=== PATIENT | male | born 1970 | race Two or more races ===

== ENCOUNTER 2017-10-13 20:56 | Emergency (ER) | payer MEDICAID ==
[~2017-10-13] VITALS: Ht 167.6 cm; Wt 68.0 kg
[~2017-10-13 20:56] MED LIST: AZIT250T PO; CYCL-1 PO; DIAZ-351 PO; HYDR-569 PO; IBUP-1985 PO; MECL-111 PO; NAPR-1144 PO; ONDA4TAB12 PO; PROC-8 PO
[2017-10-13] MEDS ORDERED: IBUP-1985 PO (21:35)
[2017-10-13] MEDS ORDERED: ibuprofen 200mg tablet PO ONE (21:35)
[2017-10-13 21:52] VITALS: BP 158/99
== END 2017-10-13 21:52 | disposition home or self-care (01) ==
LOC: ER 20:58
DX: S60.211A Contusion of right wrist, initial encounter (principal); J45.909 Unspecified asthma, uncomplicated; F15.10 Other stimulant abuse, uncomplicated; F12.10 Cannabis abuse, uncomplicated; Z88.0 Allergy status to penicillin; W22.8XXA Striking against or struck by other objects, initial encounter; Y93.89 Activity, other specified; Y92.89 Other specified places as the place of occurrence of the external cause; Y99.8 Other external cause status
CPT/HCPCS: 73130; 99284

== ENCOUNTER 2017-12-01 11:21 | Emergency (ER) | payer MEDICAID ==
[~2017-12-01] VITALS: Ht 167.6 cm; Wt 63.0 kg
[2017-12-01 11:33] VITALS: BP 140/100
[2017-12-01] MEDS ORDERED: DOXY100C43 PO (12:03)
== END 2017-12-01 12:26 | disposition home or self-care (01) ==
LOC: ER 11:21
DX: L02.415 Cutaneous abscess of right lower limb (principal); J45.909 Unspecified asthma, uncomplicated; F12.10 Cannabis abuse, uncomplicated; F15.10 Other stimulant abuse, uncomplicated; Z90.49 Acquired absence of other specified parts of digestive tract; Z98.890 Other specified postprocedural states; Z56.0 Unemployment, unspecified; Z88.0 Allergy status to penicillin; Z79.899 Other long term (current) drug therapy
CPT/HCPCS: 99283

== ENCOUNTER 2019-01-18 10:31 | Emergency (ER) | payer MEDICAID ==
[~2019-01-18] VITALS: Ht 165.1 cm; Wt 63.6 kg
[~2019-01-18 10:31] MED LIST changes: +HYDR-4383 PO; -HYDR-569 PO
[2019-01-18 10:38] VITALS: BP 121/80
== END 2019-01-18 11:24 | disposition home or self-care (01) ==
LOC: ER 10:31
DX: F15.90 Other stimulant use, unspecified, uncomplicated (principal); F11.90 Opioid use, unspecified, uncomplicated; Z02.89 Encounter for other administrative examinations; J45.909 Unspecified asthma, uncomplicated; F12.90 Cannabis use, unspecified, uncomplicated; F17.200 Nicotine dependence, unspecified, uncomplicated; Z90.49 Acquired absence of other specified parts of digestive tract; Z98.890 Other specified postprocedural states; Z88.0 Allergy status to penicillin; Z79.899 Other long term (current) drug therapy; Z56.0 Unemployment, unspecified; Z60.2 Problems related to living alone
CPT/HCPCS: 99281

== ENCOUNTER → 2020-05-24 | Emergency (ER) | payer MEDICAID ==
[~2020-05-24] VITALS: Ht 165.1 cm; Wt 56.0 kg
[~2020-05-24] MED LIST changes: +CefTRIAXone 2gm/D5W 50ml 50 ML IV ONE; +ESOM40CA49 PO; +HYDROmorphone 1 mg/ml syringe IV ONE; -MECL-111 PO; +MECL-159 PO; +TETRAcaine 0.5% ophthalmic drops 15ml EACHEYE ONE; +morphine 10mg/ml inj. IV ONE; +proparacaine 0.5% ophthalmic drops 15ml EACHEYE ONE
--- NOTE | 2020-05-24 18:03 | NUR ---
awaiting ed MD.
[2020-05-24 19:16] LABS: BASOPHILS # (AUTO) 0.1 X10'3 (0-0.2); BASOPHILS % (AUTO) 0.9 % (0-1); EOSINOPHILS # (AUTO) 0.1 X10'3 (0-0.9); EOSINOPHILS % (AUTO) 1.4 % (0-6); HEMATOCRIT 40.5 % (42.0-52.0); HEMOGLOBIN 13.7 g/dl (14.0-17.9); LYMPHOCYTES # (AUTO) 1.5 X10'3 (1.1-4.8); LYMPHOCYTES % (AUTO) 22.7 % (21-51); MEAN CORPUSCULAR HEMOGLOBIN 29.7 PG (27.0-31.0); MEAN CORPUSCULAR HGB CONC 33.7 g/dL (33.0-36.5); MEAN CORPUSCULAR VOLUME 88.2 FL (78-98); MONOCYTES # (AUTO) 0.5 X10'3 (0-0.9); MONOCYTES % (AUTO) 6.8 % (2-12); NEUTROPHILS # (AUTO) 4.6 X10'3 (1.8-7.7); NEUTROPHILS % (AUTO) 68.2 % (42-75); PLATELET COUNT 471 X10'3 (140-440); RED CELL DISTRIBUTION WIDTH 13.7 % (11.5-14.5); WHITE BLOOD COUNT 6.8 X10'3 (4.5-11.0)
[2020-05-24 19:25] LABS: ALANINE AMINOTRANSFERASE 69 U/L (12-78); ALBUMIN 3.4 G/DL (3.4-5.0); ALBUMIN/GLOBULIN RATIO 0.7 (1.1-1.5); ALKALINE PHOSPHATASE 111 IU/L (46-116); ANION GAP 8 (8-16); ASPARTATE AMINO TRANSFERASE 60 U/L (10-37); BILIRUBIN,TOTAL 0.2 MG/DL (0.1-1.0); BLOOD UREA NITROGEN 20 MG/DL (7-18); BUN/CREATININE RATIO 18.9 (5.4-32.0); CALCIUM 9.4 MG/DL (8.5-10.1); CHLORIDE 103 MMOL/L (99-107); CREATININE 1.06 MG/DL (0.60-1.10); GLUCOSE 90 MG/DL (70-104); POTASSIUM 4.1 MMOL/L (3.5-5.1); SODIUM 140 MMOL/L (135-145); TOTAL CARBON DIOXIDE 29.1 MMOL/L (24-32); TOTAL PROTEIN 8.4 G/DL (6.4-8.2); eGFR 74 ML/MIN
[2020-05-24 21:31] VITALS: BP 150/106
--- NOTE | 2020-05-24 23:50 | NUR ---
Report given to ZEESHAN Sigala at [facility] ER
== END | disposition short-term general hospital (02) ==
LOC: ER 17:27
DX: H20.051 Hypopyon, right eye (principal); J45.909 Unspecified asthma, uncomplicated; F41.9 Anxiety disorder, unspecified; F31.9 Bipolar disorder, unspecified; F12.90 Cannabis use, unspecified, uncomplicated; F15.90 Other stimulant use, unspecified, uncomplicated; F11.90 Opioid use, unspecified, uncomplicated; Z90.49 Acquired absence of other specified parts of digestive tract; Z98.890 Other specified postprocedural states; Z60.2 Problems related to living alone; Z56.0 Unemployment, unspecified; Z88.0 Allergy status to penicillin; Z79.2 Long term (current) use of antibiotics; Z79.899 Other long term (current) drug therapy
CPT/HCPCS: 36415; 80053; 84145; 85025; 96365; 96375; 99285; J0696; J1170; J2270

== ENCOUNTER 2021-04-18 20:38 | Emergency (ER) | payer MEDICAID ==
[~2021-04-18] VITALS: Ht 167.6 cm; Wt 62.8 kg
[~2021-04-18 20:38] MED LIST changes: -CefTRIAXone 2gm/D5W 50ml 50 ML IV ONE; -HYDROmorphone 1 mg/ml syringe IV ONE; -TETRAcaine 0.5% ophthalmic drops 15ml EACHEYE ONE; -morphine 10mg/ml inj. IV ONE; -proparacaine 0.5% ophthalmic drops 15ml EACHEYE ONE
[2021-04-18 20:43] VITALS: BP 124/80
[2021-04-18 21:27] LABS: CLARITY,URINE CLEAR (Clear); COLOR,URINE YELLOW (Yellow); GLUCOSE, URINE NEGATIVE (Neg); KETONES,URINE NEGATIVE (Neg); LEUKOCYTE ESTERASE ,URINE NEGATIVE (Neg); NITRITES, URINE NEGATIVE (Neg); OCCULT BLOOD,URINE NEGATIVE (Neg); PROTEIN,URINE NEGATIVE (Neg); UROBILINOGEN,URINE 0.2 E.U/dL (0.2-1.0)
[2021-04-18 21:32] LABS: UA COLLECTION TYPE CLN CATCH MIDSTREAM
[2021-04-18] MEDS ORDERED: normal saline 1000ml 1,000 ML IV ONE (22:40)
[2021-04-18] MEDS ORDERED: morphine 4 MG/ML inj SYRINge IV ONE (22:40)
[2021-04-18] MEDS ORDERED: ondansetron/PF 4mg/2ml inj IV ONE (23:05)
[2021-04-18 23:09] LABS: BASOPHILS % (AUTO) 0.4 % (0-1); EOSINOPHILS # (AUTO) 0.2 X10'3 (0-0.9); EOSINOPHILS % (AUTO) 1.7 % (0-6); HEMATOCRIT 32.7 % (42.0-52.0); HEMOGLOBIN 10.4 g/dl (14.0-17.9); LYMPHOCYTES # (AUTO) 1.9 X10'3 (1.1-4.8); MEAN CORPUSCULAR HEMOGLOBIN 26.1 PG (27.0-31.0); MEAN CORPUSCULAR VOLUME 81.6 FL (78-98); MONOCYTES # (AUTO) 0.9 X10'3 (0-0.9); MONOCYTES % (AUTO) 8.5 % (2-12); NEUTROPHILS # (AUTO) 7.1 X10'3 (1.8-7.7); NEUTROPHILS % (AUTO) 70.4 % (42-75); PLATELET COUNT 469 X10'3 (140-440); RED CELL DISTRIBUTION WIDTH 16.1 % (11.5-14.5); WHITE BLOOD COUNT 10.1 X10'3 (4.5-11.0)
[2021-04-18 23:24] LABS: ALBUMIN 3.2 G/DL (3.4-5.0); ALBUMIN/GLOBULIN RATIO 0.8 (1.1-1.5); ANION GAP 8 (8-16); ASPARTATE AMINO TRANSFERASE 18 U/L (10-37); BILIRUBIN,TOTAL 0.1 MG/DL (0.1-1.0); BLOOD UREA NITROGEN 17 MG/DL (7-18); BUN/CREATININE RATIO 16.2 (5.4-32.0); CALCIUM 8.4 MG/DL (8.5-10.1); CHLORIDE 109 MMOL/L (99-107); CREATININE 1.05 MG/DL (0.60-1.10); GLUCOSE 100 MG/DL (70-104); POTASSIUM 4.1 MMOL/L (3.5-5.1); SODIUM 144 MMOL/L (135-145); TOTAL CARBON DIOXIDE 27.4 MMOL/L (24-32); eGFR 74 ML/MIN
[2021-04-18 23:25] LABS: ALANINE AMINOTRANSFERASE 33 U/L (12-78); ALKALINE PHOSPHATASE 120 IU/L (46-116)
--- NOTE | 2021-04-19 01:06 | NUR ---
PT WAS SLEEPING WITH SNORING RESPIRATIONS - THE TECH AWOKE THE PATIENT TO LET HIM KNOW THAT THE RN WOULD BE IN SOON TO D\C HIM AND ASKED IF HE HAD A RIDE. THE PT BECAME LOUD AND DEMANDING STATING THAT WE COULDN'T DISCHARGE HIM BECAUSE HE WAS IN TOO MUCH PAIN. ATTEMPTS WERE MADE TO EDUCATE PT ON HIS D\C BUT HE WAS ADAMANT THAT WE NOT DISCHARGE HIM. SECURITY WAS CALLED AND PT WAS ESCORTED OFF PROPERTY.
== END 2021-04-19 01:30 | disposition home or self-care (01) ==
LOC: ER 20:38
DX: R10.84 Generalized abdominal pain (principal); J45.909 Unspecified asthma, uncomplicated; F41.9 Anxiety disorder, unspecified; F31.9 Bipolar disorder, unspecified; F12.90 Cannabis use, unspecified, uncomplicated; F15.90 Other stimulant use, unspecified, uncomplicated; F11.90 Opioid use, unspecified, uncomplicated; Z90.49 Acquired absence of other specified parts of digestive tract; Z98.890 Other specified postprocedural states; Z72.89 Other problems related to lifestyle; Z60.2 Problems related to living alone; Z56.0 Unemployment, unspecified; Z88.0 Allergy status to penicillin; Z79.2 Long term (current) use of antibiotics; Z79.899 Other long term (current) drug therapy
CPT/HCPCS: 36415; 74176; 80053; 81003; 85025; 96374; 96375; 99284; J2270; J2405; J7030

== ENCOUNTER 2022-09-11 | Inpatient (IN) | payer MEDICAID ==
[~2022-09-11] VITALS: Ht 165.1 cm; Wt 68.2 kg
[2022-09-11] MEDS ORDERED: clindamycin 600mg/D5W 50ml 50 ML IV ONE (01:25)
[2022-09-11] MEDS ORDERED: LIDOCAINE 2%/EPI 1:100,000 inj. Multi-dose 20 ML VIAL IJ ONE (01:25)
[2022-09-11] MEDS ORDERED: acetaminophen 325mg tablet PO ONE (01:30)
[2022-09-11] MEDS ORDERED: ondansetron/PF 4mg/2ml inj IV PRN (02:20)
[2022-09-11] MEDS ORDERED: morphine 2 MG/ML inj. syringe IV PRN ×2 (02:20)
[2022-09-11] MEDS ORDERED: HYDROcodone/acetaminophen 10/325mg tab PO PRN (02:20)
[2022-09-11] MEDS ORDERED: mag hydrox/Alum hydrox/simeth 30ml oral suspension PO PRN (02:20)
[2022-09-11] MEDS ORDERED: acetaminophen 325mg tablet PO PRN ×2 (02:20)
[2022-09-11] MEDS ORDERED: magnesium hydroxide 30ml (MOM) UD suspension PO PRN (02:20)
[2022-09-11] MEDS ORDERED: HYDROcodone/acetaminophen 5mg/325mg tablet PO PRN (02:20)
[2022-09-11 02:35] LABS: BASOPHILS # (AUTO) 0.1 X10'3 (0-0.2); BASOPHILS % (AUTO) 0.5 % (0-1); EOSINOPHILS # (AUTO) 0.2 X10'3 (0-0.9); EOSINOPHILS % (AUTO) 1.3 % (0-6); HEMATOCRIT 35.1 % (42.0-52.0); HEMOGLOBIN 11.2 g/dl (14.0-17.9); LYMPHOCYTES # (AUTO) 1.9 X10'3 (1.1-4.8); LYMPHOCYTES % (AUTO) 16.3 % (21-51); MEAN CORPUSCULAR HGB CONC 31.8 g/dL (33.0-36.5); MEAN CORPUSCULAR VOLUME 78.7 FL (78-98); MEAN PLATELET VOLUME 7.2 FL (7.4-10.4); MONOCYTES # (AUTO) 0.8 X10'3 (0-0.9); MONOCYTES % (AUTO) 7.2 % (2-12); NEUTROPHILS # (AUTO) 8.6 X10'3 (1.8-7.7); NEUTROPHILS % (AUTO) 74.7 % (42-75); PLATELET COUNT 462 X10'3 (140-440); RED BLOOD COUNT 4.46 X10'6 (4.70-6.10); RED CELL DISTRIBUTION WIDTH 18.1 % (11.5-14.5); WHITE BLOOD COUNT 11.5 X10'3 (4.5-11.0)
[2022-09-11 02:47] LABS: ALANINE AMINOTRANSFERASE 32 U/L (12-78); ALBUMIN 3.3 G/DL (3.4-5.0); ALBUMIN/GLOBULIN RATIO 0.8 (1.1-1.5); ALKALINE PHOSPHATASE 109 IU/L (46-116); ANION GAP 8 (8-16); ASPARTATE AMINO TRANSFERASE 26 U/L (10-37); BILIRUBIN,TOTAL 0.1 MG/DL (0.1-1.0); BLOOD UREA NITROGEN 14 MG/DL (7-18); BUN/CREATININE RATIO 17.5 (5.4-32.0); CALCIUM 8.9 MG/DL (8.5-10.1); CHLORIDE 102 MMOL/L (99-107); GLUCOSE 98 MG/DL (70-104); POTASSIUM 3.8 MMOL/L (3.5-5.1); SODIUM 138 MMOL/L (135-145); TOTAL CARBON DIOXIDE 27.7 MMOL/L (24-32); TOTAL PROTEIN 7.6 G/DL (6.4-8.2); eGFR > 90 ML/MIN
[2022-09-11] MEDS: vancomycin/NS 1 GM ADD-VANTAGE 250 ML IV SCH ×4 (03:18→22:15)
--- NOTE | 2022-09-11 06:34 | NUR ---
Patient asleep.Respirations regular,awaiting for in patient room assignment.
[2022-09-11] MEDS ORDERED: FERR-116 PO (06:59)
[2022-09-11] MEDS ORDERED: LISI5TAB22 PO (06:59)
[2022-09-11] MEDS: docusate sod 100mg capsule PO SCH ×2 (08:32→20:53)
[2022-09-11] MEDS: enoxaparin 40mg/0.4ml syringe SUBCUT SCH ×2 (08:33→20:45)
[2022-09-11 08:56] VITALS: BP 133/84
[2022-09-11 11:30] VITALS: BP 132/83
[2022-09-11 18:00] VITALS: BP 133/85
--- NOTE | 2022-09-11 20:58 | NUR ---
vanco admin deferred. IV occluded
[2022-09-11 22:00] VITALS: BP 131/86
--- NOTE | 2022-09-12 06:32 | NUR ---
Patient in room [facility]. I have received report from SHEY BYERS and had the opportunity to ask questions and assume patient care.
[2022-09-12 06:56] VITALS: BP 136/95
[2022-09-12] MEDS ORDERED: VANCOMYCIN LEVEL IV ONE (07:30)
[2022-09-12] MEDS: vancomycin/NS 1 GM ADD-VANTAGE 250 ML IV SCH (07:45)
[2022-09-12] MEDS: docusate sod 100mg capsule PO SCH (07:45)
[2022-09-12] MEDS: enoxaparin 40mg/0.4ml syringe SUBCUT SCH (07:46)
[2022-09-12 07:55] LABS: BASOPHILS % (AUTO) 0.6 % (0-1); EOSINOPHILS # (AUTO) 0.2 X10'3 (0-0.9); EOSINOPHILS % (AUTO) 3.6 % (0-6); HEMATOCRIT 36.4 % (42.0-52.0); HEMOGLOBIN 11.7 g/dl (14.0-17.9); LYMPHOCYTES # (AUTO) 1.5 X10'3 (1.1-4.8); MEAN CORPUSCULAR HEMOGLOBIN 25.2 PG (27.0-31.0); MEAN CORPUSCULAR HGB CONC 32.2 g/dL (33.0-36.5); MEAN CORPUSCULAR VOLUME 78.4 FL (78-98); MEAN PLATELET VOLUME 6.9 FL (7.4-10.4); MONOCYTES # (AUTO) 0.5 X10'3 (0-0.9); MONOCYTES % (AUTO) 8.3 % (2-12); NEUTROPHILS # (AUTO) 3.8 X10'3 (1.8-7.7); NEUTROPHILS % (AUTO) 62.5 % (42-75); PLATELET COUNT 450 X10'3 (140-440); RED BLOOD COUNT 4.64 X10'6 (4.70-6.10)
[2022-09-12] MEDS ORDERED: lisinopril 5mg tablet PO SCH (08:00)
[2022-09-12 08:01] LABS: ALBUMIN 3.1 G/DL (3.4-5.0); ANION GAP 8 (8-16); BLOOD UREA NITROGEN 15 MG/DL (7-18); BUN/CREATININE RATIO 17.2 (5.4-32.0); CALCIUM 8.6 MG/DL (8.5-10.1); CHLORIDE 103 MMOL/L (99-107); CREATININE 0.87 MG/DL (0.60-1.10); GLUCOSE 88 MG/DL (70-104); POTASSIUM 3.9 MMOL/L (3.5-5.1); SODIUM 137 MMOL/L (135-145); TOTAL CARBON DIOXIDE 26.4 MMOL/L (24-32); VANCOMYCIN,TROUGH 10.2 UG/ML (6.0-14.0); eGFR > 90 ML/MIN
--- NOTE | 2022-09-12 10:22 | NUR ---
PAGER ID: [phone] MESSAGE: [id number] RE: HOMERO, PATIENT STATES "I AM READY TO LEAVE" AND WANTS TO BE SEEN AND CONVERTED TO [employer]AL [employer]IOT[employer] RYLIE. THANKS
[2022-09-12 11:00] VITALS: BP 141/90
[2022-09-12] MEDS ORDERED: DOXY-243 PO (11:54)
--- NOTE | 2022-09-12 12:00 | NUR ---
Patient was discharged home, with new medications that were verbally described on use and dosing. Patient expressed verbal understanding of discharge teaching during discharge. Patient IV taken out at the time of discharge as well. Canula was whole and intact upon inspection, site showed minimal bleeding. Patient was educated on antibiotic use and was also notified, that wound care serviced were being initiated and we will call with his appointment. Patient was also sent with wound care Items including. 2xkerlex, 2x Gauze, 1x xeroform, 2x curaid non adherent dressings. Patient was also sent with saline and 1x pack of 4x4. Patient was also given a handful of gloves for dressing care as well. Patient walked out with all belongings.
[2022-09-12] MEDS ORDERED: VANCOmycin 1250MG/NS 250ml Bag 250 ML IV SCH (20:00)
[2022-09-14] MEDS ORDERED: VANCOMYCIN LEVEL IV ONE (07:30)
== END 2022-09-12 15:00 | disposition home or self-care (01) | DRG 383 ==
LOC: ER 00:01 → ED HOLD 02:23 → SUR 3N 08:50
PROVIDERS: ADMIT Internal Medicine; ATTEND Internal Medicine
DX: L03.113 Cellulitis of right upper limb (principal); F17.210 Nicotine dependence, cigarettes, uncomplicated; F31.9 Bipolar disorder, unspecified; I10 Essential (primary) hypertension; J45.909 Unspecified asthma, uncomplicated; L02.413 Cutaneous abscess of right upper limb
CPT/HCPCS: 36415; 73110; 80048; 80053; 80202; 83605; 85025; 87040; 87081; 99285; A6223; A6258; A6446; A6449; G0378; J1650; J2270; J3370; J3490

== ENCOUNTER 2023-07-05 06:56 | Emergency (ER) | payer MEDICAID ==
[~2023-07-05] VITALS: Ht 167.6 cm; Wt 61.7 kg
[~2023-07-05 06:56] MED LIST changes: -AZIT250T PO; -CYCL-1 PO; -DIAZ-351 PO; +EMPA10TA PO; -ESOM40CA49 PO; +FAMO20TA8 PO; -HYDR-4383 PO; -IBUP-1985 PO; -MECL-159 PO; +METO-395 PO; -NAPR-1144 PO; -ONDA4TAB12 PO; -PROC-8 PO; +SPIR25TA5 PO
[2023-07-05] MEDS ORDERED: acetaminophen 325mg tablet PO ONE (09:10)
[2023-07-05] MEDS ORDERED: clindamycin phosphate 150mg/ml inj. IM ONE (09:10)
[2023-07-05] MEDS ORDERED: ketorolac trometh. 30mg/ml inj. IM ONE (09:10)
[2023-07-05] MEDS ORDERED: [UNRECOGNIZED DRUG - OTHER] (09:19)
[2023-07-05] MEDS ORDERED: clindamycin PO ×2 (09:19→10:26)
[2023-07-05] MEDS ORDERED: NAPR-1154 PO ×3 (09:20→10:29)
[2023-07-05] MEDS ORDERED: clindamycin 150mg capsule PO ONE (09:20)
[2023-07-05 11:17] VITALS: BP 121/88; PULSE 90; RESP 18; TEMP 98.2; O2SAT 99
== END 2023-07-05 11:19 | disposition home or self-care (01) ==
LOC: ER 06:57
DX: K13.0 Diseases of lips (principal); I50.9 Heart failure, unspecified; J45.909 Unspecified asthma, uncomplicated; F41.9 Anxiety disorder, unspecified; F12.90 Cannabis use, unspecified, uncomplicated; F15.90 Other stimulant use, unspecified, uncomplicated; F11.90 Opioid use, unspecified, uncomplicated; Z56.0 Unemployment, unspecified; Z72.89 Other problems related to lifestyle; Z90.49 Acquired absence of other specified parts of digestive tract; Z88.0 Allergy status to penicillin; Z79.899 Other long term (current) drug therapy
CPT/HCPCS: 96372; 99283; J1885

== ENCOUNTER 2024-03-28 09:54 | Outpatient (CLI) | payer MEDICAID ==
[~2024-03-28 09:54] MED LIST changes: +NAPR-1154 PO; +clindamycin PO
== END 2024-03-28 23:59 | disposition home or self-care (01) ==
LOC: CARD DIAG 09:54
PROVIDERS: ATTEND Student in an Organized Health Care Education/Training Program
DX: I34.81 Nonrheumatic mitral (valve) annulus calcification (principal); I50.9 Heart failure, unspecified
CPT/HCPCS: 93306

== ENCOUNTER 2024-12-23 11:08 | Emergency (ER) | payer MEDICAID ==
[~2024-12-23] VITALS: Ht 162.6 cm; Wt 52.7 kg
[2024-12-23] MEDS: buprenorphine/naloxone 8MG-2MG SUBlingual film SL SCH (12:31)
[2024-12-23] MEDS: cloNIDine 0.1 mg tablet PO ONE (12:31)
[2024-12-23 12:45] VITALS: BP 142/78; PULSE 77; RESP 16; TEMP 98; O2SAT 99
== END 2024-12-23 12:46 | disposition home or self-care (01) ==
LOC: ER 11:09
DX: F11.20 Opioid dependence, uncomplicated (principal); F31.9 Bipolar disorder, unspecified; J45.909 Unspecified asthma, uncomplicated; F41.9 Anxiety disorder, unspecified; F12.90 Cannabis use, unspecified, uncomplicated; F15.90 Other stimulant use, unspecified, uncomplicated; Z88.0 Allergy status to penicillin; Z90.49 Acquired absence of other specified parts of digestive tract
CPT/HCPCS: 99283